=== PATIENT | male | born 1935 | race Caucasian/White ===

== ENCOUNTER → 2022-02-20 | Outpatient (CLI) | payer MEDICARE, OTHER ==
[~2022-02-20] MED LIST: GADOBENATE DIMEGLUMINE 1 ML IV ONE
[2022-02-20 10:18] LABS: CREATININE, SERUM 1.27 mg/dL (0.72-1.25)
== END ==
LOC: NM 09:26
PROVIDERS: ATTEND Urology
DX: R97.20 Elevated prostate specific antigen [PSA] (principal)
CPT/HCPCS: 36415; 72197; 78306; 82565; 84520; A9503; A9577

== ENCOUNTER → 2022-03-13 | Outpatient (CLI) | payer MEDICARE, OTHER ==
[~2022-03-13] MED LIST changes: -GADOBENATE DIMEGLUMINE 1 ML IV ONE; +LIDOCAINE HCL 1% LOCAL INJ 20 ML VIAL ONE
== END ==
LOC: US 12:26
PROVIDERS: ATTEND Urology
DX: R97.20 Elevated prostate specific antigen [PSA] (principal); Z20.822 Contact with and (suspected) exposure to COVID-19
CPT/HCPCS: 38505; 76942; 88305; 88342; J2001; U0002; 88304